=== PATIENT | female | born 1955 | race African-American/Black ===

== ENCOUNTER 2023-05-13 15:57 | Inpatient (IN) | payer OTHER ==
[~2023-05-13] VITALS: Ht 160 cm; Wt 49.9 kg
[2023-05-13] MEDS ORDERED: ONDANSETRON HCL 4MG/2ML INJ IV STA ×2 (16:42→17:02)
[2023-05-13] MEDS ORDERED: SODIUM CHLORIDE 0.9% 1,000 ML IV ONE (16:45)
[2023-05-13] MEDS ORDERED: GLUCAGON,HUMAN RECOMBINANT 1MG/VIAL IM ONE (16:45)
[2023-05-13] MEDS ORDERED: ONDANSETRON HCL 4MG/2ML INJ IM ONE (16:45)
[2023-05-13] MEDS ORDERED: DEXTROSE 50% WATER 50ML SYRINGE IV ONE ×3 (16:45→20:45)
[2023-05-13] MEDS ORDERED: MORPHINE SULFATE 4 MG/ML CPJ (NOT FOR IM USE) IV STA (17:02)
[2023-05-13] MEDS ORDERED: VANCOMYCIN 1G PREMIX 200 ML IV ONE (17:15)
[2023-05-13] MEDS ORDERED: PIPERACILLIN/TAZ 3.375G PREMIX 50 ML IV ONE (17:15)
[2023-05-13 19:30] LABS: BASOPHILS % 0.6 % (0.0-2.0); EOSINOPHILS % 1.3 % (0.0-5.0); HEMATOCRIT. 33.9 % (36.0-48.0); HEMOGLOBIN. 11.2 g/dL (12.0-16.0); LYMPHOCYTES % 9.9 % (20.0-50.0); MEAN CORPUSCULAR HEMOGLOBIN 29.8 pg (28.0-32.0); MEAN CORPUSCULAR VOLUME 89.9 fL (81.0-99.0); MEAN PLATELET VOLUME 7.7 fl (7.4-10.4); MONOCYTES % 6.3 % (2.0-8.0); NEUTROPHILS % 81.9 % (40.0-76.0); PLATELET 233 x1000/uL (130-400); RED BLOOD CELL COUNT 3.77 mill/uL (4.2-5.4)
[2023-05-13 19:45] LABS: CHLORIDE 97 mEq/L (98-107)
[2023-05-13] MEDS ORDERED: ONDANSETRON HCL 4MG/2ML INJ IV NR (19:45)
[2023-05-13] MEDS ORDERED: MORPHINE SULFATE 4 MG/ML CPJ (NOT FOR IM USE) IV NR (19:45)
[2023-05-13] MEDS ORDERED: PIPERACILLIN/TAZ 3.375G PREMIX 50 ML IV NR (19:45)
[2023-05-13] MEDS ORDERED: DEXTROSE 10% WATER 250 ML IV ONE (20:15)
[2023-05-13] MEDS ORDERED: DEXTROSE 50% WATER 50ML SYRINGE IV NR (20:45)
[2023-05-13] MEDS ORDERED: GLUCAGON,HUMAN RECOMBINANT 1MG/VIAL IM NR (20:45)
[2023-05-13] MEDS ORDERED: VANCOMYCIN 1G PREMIX 200 ML IV NR (20:45)
[2023-05-13] MEDS ORDERED: DEXTROSE 50% WATER 50ML SYRINGE IV PRN (22:30)
[2023-05-13] MEDS ORDERED: LORAZEPAM 0.5MG TABLET PO PRN (22:30)
[2023-05-13] MEDS ORDERED: DOCUSATE SODIUM 100MG CAPSULE PO PRN (22:30)
[2023-05-13] MEDS ORDERED: ONDANSETRON HCL 4MG/2ML INJ IV PRN (22:30)
[2023-05-13] MEDS ORDERED: ACETAMINOPHEN 325MG TABLET PO PRN (22:30)
[2023-05-13] MEDS ORDERED: IPRATROPIUM/ALBUTEROL 0.5-3(2.5)MG/3ML NEB HHN PRN (22:30)
[2023-05-13] MEDS: HYDROCODONE/ACETAMINOPHEN 5/325MG TABLET PO PRN (23:31)
[2023-05-13] MEDS: CLONIDINE 0.1MG TABLET PO PRN (23:40)
[2023-05-14] VITALS (14 sets, daily range): BP systolic 115–169; BP diastolic 51–109; PULSE 64–92; RESP 7–24; TEMP 97.5–98.6
[2023-05-14] MEDS: SODIUM CHLORIDE 23.4% 154 MEQ in DEXT 10% WATER 961.5 ML IV SCH (02:53)
[2023-05-14] MEDS: HYDROCODONE/ACETAMINOPHEN 5/325MG TABLET PO PRN ×3 (06:29→16:54)
[2023-05-14] MEDS ORDERED: PIPERACILLIN/TAZOBACTAM 3.375 G in DEXTROSE 5% WATER 50 ML IV SCH (09:00)
[2023-05-14] MEDS: ACETAMINOPHEN 325MG TABLET PO PRN ×2 (09:35→18:50)
[2023-05-14] MEDS: CLONIDINE 0.1MG TABLET PO PRN (10:44)
[2023-05-14] MEDS: PIPERACILLIN/TAZOBACTAM 3.375 G in DEXTROSE 5% WATER 50 ML IV SCH ×2 (11:35→21:48)
[2023-05-14] MEDS ORDERED: NALOXONE HCL 0.4MG/ML VIAL IV PRN (16:15)
[2023-05-14] MEDS ORDERED: VANCOMYCIN 500MG PREMIX 100 ML IV NR (17:00)
[2023-05-14] MEDS ORDERED: AMLODIPINE 5MG TABLET PO SCH (17:30)
[2023-05-14 20:26] LABS: BASOPHILS % 0.7 % (0.0-2.0); EOSINOPHILS % 3.7 % (0.0-5.0); HEMATOCRIT. 33.9 % (36.0-48.0); HEMOGLOBIN. 11.3 g/dL (12.0-16.0); LYMPHOCYTES % 17.6 % (20.0-50.0); MEAN CORPUSCULAR HEMOGLOBIN 30.1 pg (28.0-32.0); MEAN CORPUSCULAR VOLUME 90.1 fL (81.0-99.0); MEAN PLATELET VOLUME 8.1 fl (7.4-10.4); MONOCYTES % 6.4 % (2.0-8.0); NEUTROPHILS % 71.6 % (40.0-76.0); PLATELET 213 x1000/uL (130-400); RED BLOOD CELL COUNT 3.77 mill/uL (4.2-5.4); RED CELL DISTRIBUTION WIDTH 17.8 % (11.6-14.6)
[2023-05-14 21:52] LABS: HEPATITIS B SURFACE ANTIGEN NEGATIVE
[2023-05-15] VITALS (11 sets, daily range): BP systolic 120–166; BP diastolic 63–102; PULSE 60–78; RESP 8–16; TEMP 97–98.6; O2SAT 100
[2023-05-15] MEDS: ACETAMINOPHEN 325MG TABLET PO PRN ×2 (02:12→16:08)
[2023-05-15] MEDS: HYDROCODONE/ACETAMINOPHEN 5/325MG TABLET PO PRN (04:45)
[2023-05-15] MEDS: SODIUM CHLORIDE 23.4% 154 MEQ in DEXT 10% WATER 961.5 ML IV SCH (08:40)
[2023-05-15] MEDS: PIPERACILLIN/TAZOBACTAM 3.375 G in DEXTROSE 5% WATER 50 ML IV SCH ×2 (08:41→21:55)
[2023-05-15] MEDS ORDERED: PNEUMOCOCCAL 23-VAL P-SAC VAC 0.5 ML IM ONE (09:00)
[2023-05-15] MEDS: HYDROCODONE/ACETAMINOPHEN 7.5/325MG TABLET PO PRN ×3 (10:00→23:55)
[2023-05-15] MEDS ORDERED: VANCOMYCIN 500MG PREMIX 100 ML IV NR (13:00)
[2023-05-15] MEDS: CLONIDINE 0.1MG TABLET PO PRN (19:39)
[2023-05-16] VITALS: BP 177/87; PULSE 66; RESP 10; TEMP 97
[2023-05-16] MEDS ORDERED: WATER IV SCH (07:45)
[2023-05-16] MEDS ORDERED: SODIUM CHLORIDE IV SCH (07:45)
[2023-05-16] MEDS ORDERED: DEXTROSE 10% IV SCH (07:45)
[2023-05-16] MEDS ORDERED: AMLODIPINE 5MG TABLET PO SCH (09:00)
== END 2023-05-16 00:15 | disposition short-term general hospital (02) | DRG 638 ==
LOC: ER 15:57 → 5EST 20:39 → EDBEDREQSVC 05-14 03:54 → ENRESERV 05-14 06:41
PROVIDERS: ADMIT Family Medicine Adult Medicine; ATTEND Family Medicine Adult Medicine
PROC: 5A1D70Z Performance of Urinary Filtration, Intermittent, Less than 6 Hours Per Day (ICD-10-PCS; principal; 2023-05-14)
PROC: 5A1D70Z Performance of Urinary Filtration, Intermittent, Less than 6 Hours Per Day (ICD-10-PCS; 2023-05-16)
DX: E11.649 Type 2 diabetes mellitus with hypoglycemia without coma (principal); E11.52 Type 2 diabetes mellitus with diabetic peripheral angiopathy with gangrene; I96 Gangrene, not elsewhere classified; I12.0 Hypertensive chronic kidney disease with stage 5 chronic kidney disease or end stage renal disease; N18.6 End stage renal disease; R74.8 Abnormal levels of other serum enzymes; M85.80 Other specified disorders of bone density and structure, unspecified site; D64.9 Anemia, unspecified; E87.5 Hyperkalemia; F17.200 Nicotine dependence, unspecified, uncomplicated; B19.20 Unspecified viral hepatitis C without hepatic coma; E11.22 Type 2 diabetes mellitus with diabetic chronic kidney disease; Z91.041 Radiographic dye allergy status; Z89.612 Acquired absence of left leg above knee; Z99.2 Dependence on renal dialysis
CPT/HCPCS: 36415; 71045; 73630; 80048; 80053; 82150; 82962; 83036; 83605; 83880; 84484; 84681; 85025; 86705; 86709; 86803; 87340; 90935; 93005; 93306; 93923; 99291; J2270; J2405; J2543; J3370; J7030; J7060; J7131